=== PATIENT | male | born 1955 | race African-American/Black ===

== ENCOUNTER 2016-09-27 16:37 | Inpatient (IN) | payer OTHER ==
--- NOTE | ~2016-09-27 | CR72 ---
[facility] A Service of [facility] & [facility] RADIOLOGY TEXT RESULTS PATIENT: JERRI GARCIA LOCATION: [facility] : 59 UNIT #: [id number] AGE: [address]: Shadi Garrett MD SEX: M ORDER DR: [id number] [facility] [address] [place], [place] [address] [id number] MR#: [id number] Acc #: [id number] NAME: JERRI GARCIA : 1955 SEX: M STUDY DATE/TIME: 09/27/2016 13:44 UNIT: [facility] ROOM: STUDY DESCRIPTION: CR Chest Single View Portable Attending Physician: Shadi Garrett M.D. Ordering Physician: Shadi Garrett M.D. Primary Care Physician: Carmine Cabrera M.D. MEDICAL IMAGING REPORT This report is preliminary unless electronic signature is present EXAM AP portable chest, 09/27 COMPARISON 08/09/2016 HISTORY Cough, shortness of breath, chest pain for 2 weeks, history of heart failure. FINDINGS An AP portable view was obtained. Cardiac size is enlarged. There is a biventricular pacemaker in place. Lungs show a significant increase in pulmonary vascular congestion and interstitial edema. No obvious pleural effusions are seen. CONCLUSION Cardiomegaly with postop changes of biventricular pacemaker. Increase in the pulmonary vascular markings as well as an increase in interstitial markings consistent development of superimposed heart failure. Dictated by... Chase Mendoza M.D. THIS IS AN ELECTRONICALLY VERIFIED REPORT Chase Mendoza M.D. at 09/27/2016 5:07 PM Misha TD: 09/27/2016 15:40 JOB #: [id number] MEDICAL IMAGING REPORT COPY
--- NOTE | ~2016-09-27 | DS ---
Unit #: [id number] #: [id number] Patient: JERRI GARCIA [id number] [address] [address] [id number] I MR#: [id number] NAME: JERRI GARCIA ROOM: 563 Age: 60 Sex: M Admission Date: 09/27/2016 : 1955 Discharge Date: 10/06/2016 Attending Physician: Eloy Lockett M.D. Primary Care Physician: Carmine Cabrera M.D. DISCHARGE SUMMARY FINAL DIAGNOSES 1. Acute hypoxic respiratory failure. 2. Acute exacerbation of chronic obstructive pulmonary disease. 3. Acute congestive heart failure exacerbation. 4. Ejection fraction of 10%. 5. Right ventricular failure. 6. Automatic implantable cardioverter defibrillator in place. 7. Mildly elevated troponin, 0.18. 8. Nonobstructive coronary artery disease, on cath 09/2014. 9. Acute on chronic kidney disease. 10. Hypertension. 11. Diabetes mellitus type 2. 12. Hyperlipidemia. DISCHARGE MEDICATIONS 1. Entresto , one tablet p.o. b.i.d. 2. Imdur ER 60 mg daily. 3. Spironolactone 25 mg daily. 4. Aspirin 81 mg daily. 5. Colchicine 0.6 mg t.i.d. p.r.n. 6. Zyloprim 300 mg daily. 7. Continue insulin - Lantus 16 units at bedtime and 6 units three times a day Humalog. 8. Discontinue Zestril. 9. Lipitor 40 mg at bedtime. 10. Bumex 2 mg b.i.d. 11. Lopressor 50 mg twice a day. 12. Lanoxin 0.125 mg daily. 13. Xarelto 20 mg daily. 14. Prednisone 30 mg daily for two days and decrease 10 mg every three days until off. 15. Nebulizer treatment with albuterol and Atrovent q.i.d. and p.r.n. CONSULTATION DURING HOSPITALIZATION 1. Dr. Nguyễn - Cardiology services. 2. Dr. Harvey/Dr. Lockett - Pulmonary services. 3. Dr. Erwin Espinal - Ophthalmology services. SIGNIFICANT PROCEDURES AND DIAGNOSTIC STUDIES DONE 1. V/Q scan of the lungs which showed low probability of pulmonary embolism. 2. Lower extremity bilateral venous Doppler which shows negative for any DVT. 3. Chest x-ray PA and lateral October 03, 2016, showed cardiac pacemaker Unit #: [id number] #: [id number] Patient: JERRI GARCIA unchanged. Stable cardiac enlargement. Lungs are well inflated. No evidence of acute infectious or inflammatory disease. No pleural effusion or pneumothorax. No suspicious nodules. 4. Echocardiogram states ejection fraction of 10%, bilateral ventricular failure. LAB WORKUP ON DISCHARGE Sodium 138, potassium 3.7, chloride 100, BUN 29, creatinine 1.1, calcium 8.5, magnesium 2.0, WBC 14.5, hemoglobin 11.6, hematocrit 37.2, platelet count of 324, glucose 147. Blood cultures were done during hospitalization which is no growth. BNP on 10/04/2016 was 1206. TSH 1.80. Lactic acid 1.9 on admission. Troponin 0.15. HOSPITAL COURSE Acute respiratory failure with acute chronic obstructive pulmonary disease exacerbation: The patient was seen by Dr. Harvey and Dr. Lockett. The patient was treated with IV Solu-Medrol and later on changed to prednisone and nebulizer treatment. The patient also received IV antibiotic during hospitalization. Influenzae B positive: The patient was diagnosed with influenzae B on admission. That could be the cause of his chronic obstructive pulmonary disease exacerbation. The patient was treated with Tamiflu and he has completed the course of antibiotics. Acute on chronic systolic congestive heart failure: The patient does have significant cardiomyopathy with ejection fraction of less than 10%. The patient was seen by Dr. Nguyễn and Dr. Mir. He did receive dobutamine drip during hospitalization and IV Bumex. He is somewhat better. His cardiac medications have been adjusted by Dr. Nguyễn. The patient will need to continue to follow up with him as an outpatient. Hypokalemia and hypomagnesemia which has been replaced and is stable on discharge. History of atrial fibrillation/flutter: The patient is on anticoagulation therapy. Seems to be stable at this time. He did have tachycardia on admission which is stable. Again, medications adjusted. Diabetes mellitus: The patient did have hyperglycemia during hospitalization because of most likely secondary to steroids. We need to continue to observe as an outpatient. Hypertension, uncontrolled on admission which is stable at this time: That needs to be continued to observe as an outpatient. Examination on discharge - blood pressure 130/98, respiratory rate 18, pulse is 104, temperature 98.0. HEAD is normocephalic. Eye movements normal. CHEST - clear air entry, decreased at the bases. CVS - S1, S2 positive. ABDOMEN - soft. EXTREMITIES - bilateral pedal edema is present. DISCHARGE INSTRUCTIONS 1. Follow up with primary care provider in one week. 2. Follow with Dr. Nguyễn as scheduled. 3. Discontinue lisinopril. 4. Aldactone has been increased. 5. Isosorbide dose has been decreased to 60 mg. 6. Amiodarone is being discontinued. Unit #: [id number] #: [id number] Patient: JERRI GARCIA Plan of care has been discussed with patient. He does verbalize understanding. Dictated by... Ness Cabrera M.D. AILYN/jr TD: 10/07/2016 06:46 JOB #: [id number] DISCHARGE SUMMARY X Ness Cabrera MD X DISCHARGE SUMMARY
--- NOTE | ~2016-09-27 | HP ---
Unit #: [id number] #: [id number] Patient: JERRI GARCIA [id number] [address] [place], [place] [address] [id number] I MR#: [id number] NAME: JERRI GARCIA. ROOM: 37559 Age: 60 Sex: M Admission Date: 09/27/2016 : 1955 Attending Physician: Flower Randle M.D. Primary Care Physician: Carmine Cabrera M.D. HISTORY AND PHYSICAL CHIEF COMPLAINT Shortness of breath. HISTORY OF PRESENTING ILLNESS A 60-year-old male who is very well known to me with multiple medical problems including systolic congestive heart failure with ejection fraction of 15%, nonischemic cardiomyopathy with a history of AICD, known supraventricular tachycardia, chronic kidney disease, atrial flutter, COPD, type 2 diabetes mellitus, hyperlipidemia, and hypertension, came with the complaint of shortness of breath. According to patient, it just started a few days ago and was gradually getting worse. He could not take a breath and walk even for one block. He also has a history of COPD. He has been coughing and bringing up some yellowish-colored sputum. He is not able to lie down flat. He has orthopnea, and he does have some paroxysmal nocturnal dyspnea also. He also is having bilateral lower extremity swelling. He also complains of chest pain which is the left side of the chest. No tingling or numbness of the arm and no radiation of the pain to the arm. PAST MEDICAL HISTORY 1. Hypertension. 2. Hyperlipidemia. 3. Nonischemic congestive heart failure with ejection fraction of 15%. 4. Chronic kidney disease. 5. Diabetes mellitus. 6. Atrial flutter. 7. Chronic obstructive pulmonary disease. 8. History of AICD in place. FAMILY HISTORY Unremarkable. SOCIAL HISTORY Patient has a history of smoking and heavy drinking, but according to him, he has not been smoking or drinking. No history of drug abuse. ALLERGIES No known drug allergies. HOME MEDICATIONS 1. Lantus 16 units subcutaneous at bedtime. 2. Aspirin 81 mg daily. 3. Albuterol sulfate q.i.d. 4. Digitek 125 mcg daily. Unit #: [id number] #: [id number] Patient: JERRI GARCIA 5. Isosorbide 120 mg daily. 6. Colchicine 0.6 mg 3 times daily. 7. Bumex 2 mg twice daily. 8. Lipitor 40 mg daily. 9. Xarelto 20 mg daily. 10. Hydralazine 25 mg p.o. twice daily. 11. Pacerone 200 mg daily. 12. Allopurinol 300 mg daily. 13. Lisinopril 10 mg daily. 14. Humalog 6 units subcutaneous 3 times daily before meals. REVIEW OF SYSTEMS As per History of Presenting Illness. No history of fever, chills, or rigors. No history of dizziness or syncopal episode. No history of abdominal pain, no nausea or vomiting, and no constipation or diarrhea. The rest is as per History of Presenting Illness. PHYSICAL EXAMINATION GENERAL: Patient is lying in bed and seems to be in respiratory distress. VITAL SIGNS: Blood pressure is 150/101, respiratory rate 16, pulse 129, temperature 97, and oxygen saturation is 90% on BiPAP. HEENT: Head is normocephalic. Eye movements are normal. NECK: Supple. CHEST: Decreased air entry. Crackles are heard. Wheezing is heard bilaterally. CARDIOVASCULAR: S1 and S2 positive. Murmur is heard. ABDOMEN: Soft. Bowel sounds are positive. EXTREMITIES: Bilateral lower extremity edema is present. CENTRAL NERVOUS SYSTEM: Awake, alert, and oriented x3. No focal neurological deficit. DIAGNOSTIC STUDIES LABORATORY: ABG on room air with pH of 7.5, PCO2 of 28, PO2 of 61.4, and oxygen saturation is 88.4%. Troponin is 0.09. CBC shows WBC 5.9, hemoglobin 11.5, hematocrit 36.2, and platelet count of 270,000. Digoxin less than 0.2. BNP 763. BMP shows sodium of 140, potassium 3.1, chloride 100, BUN 49, creatinine 1.8, AST 132, ALT 111, and alkaline phosphatase 107. Lactic acid 2.5. Influenza B is positive. IMAGING: Chest x-ray shows fluid overload and increase in pulmonary vascular marking. ASSESSMENT Patient is being admitted to the ICU because of being on BiPAP with diagnoses of: 1. Acute on chronic hypoxic respiratory failure. 2. Acute on chronic systolic congestive heart failure with ejection fraction of 15%. 3. Influenza B positive. 4. Hypokalemia. 5. Chronic obstructive pulmonary disease exacerbation. 6. Chest pain with troponin minimal elevation, possible progression of coronary artery disease. 7. History of atrial fibrillation and flutter, on anticoagulation therapy, with tachycardia. 8. Diabetes mellitus x2. 9. Hypertension, uncontrolled. Unit #: [id number] #: [id number] Patient: JERRI GARCIA PLAN Admit to telemetry unit. Dr. Nguyễn and Dr. Harvey have been consulted. IV Solu-Medrol 40 mg q.12 is being started. IV Lopressor is being started. IV Bumex 2 mg b.i.d. An 1800 mL fluid restriction. Daily weight and strict I/Os. IV Lanoxin 0.25 mg stat and q.6 hours for 4 doses, followed by 0.125 mg daily as patient's Lanoxin level is low. Xarelto 20 mg p.o. stat and daily. Home medications have been reviewed. IV vancomycin and Levaquin are being continued at this time. Please refer to progress note for further orders. Dictated by Debbie Kingsley TD: 09/27/2016 18:26 JOB #: [id number] HISTORY AND PHYSICAL X Ness Cabrera MD X HISTORY AND PHYSICAL
--- NOTE | ~2016-09-27 | NM69 ---
[facility] A Service of [facility] & [facility] RADIOLOGY TEXT RESULTS PATIENT: JERRI GARCIA LOCATION: [address] : [birth year] UNIT #: [id number] AGE: [address]: Eloy Lockett MD SEX: M ORDER DR: [id number] [facility] [address] [place], [place] [address] [id number] I MR#: [id number] Acc #: [id number] NAME: JERRI GARCIA. : 1955 SEX: M STUDY DATE/TIME: 09/28/2016 7:33 UNIT: [facility] ROOM: [facility] STUDY DESCRIPTION: NM Pulm Vent and Perf Attending Physician: Eloy Lockett M.D. Ordering Physician: Flower Randle M.D. Primary Care Physician: Carmine Cabrera M.D. MEDICAL IMAGING REPORT This report is preliminary unless electronic signature is present EXAM V/Q scan, 09/28. INDICATION Shortness of air and chest pain for 3 weeks. Elevated D-dimer. Fatigue. FINDINGS Ventilation images were obtained after the administration of 36 mCi of technetium 99m-DTPA aerosol. Corresponding perfusion images were obtained after the IV administration of 5.3 mCi of technetium 99m-MAA. Comparison made with chest x-ray performed 09/27/2016 at 1344 hours. Ventilation and perfusion tracer deposition in the lungs is somewhat heterogeneous, but no V/Q mismatches are seen. There are no segmental perfusion defects. The study is low probability for pulmonary embolism. IMPRESSION Low probability for pulmonary embolism. Dictated by... Harjinder Buckner Jr., M.D. THIS IS AN ELECTRONICALLY VERIFIED REPORT Harjinder Buckner Jr., M.D. at 09/28/2016 3:50 PM MARÍA ELENA/ban TD: 09/28/2016 09:26 JOB #: [id number] MEDICAL IMAGING REPORT COPY
--- NOTE | ~2016-09-27 | EKG ---
PATIENT: JERRI GARCIA UNIT #: [id number] Ventricular Rate: 131 BPM Atrial Rate: 131 BPM P-R Interval: 136 ms QRS Duration: 130 ms Q-T Interval: 326 ms QTC Calculation(Bezet): 481 ms P Valencia: 70 degrees Calculated R Valencia: 85 degrees Calculated T Valencia: -92 degrees Diagnosis Line: Atrial flutter with occasional Premature Diagnosis Line: ventricular complexes Diagnosis Line: Possible Left atrial enlargement Diagnosis Line: Non-specific intra-ventricular conduction block Diagnosis Line: T wave abnormality, consider inferolateral Diagnosis Line: ischemia Diagnosis Line: Abnormal ECG Diagnosis Line: When compared with ECG of 04-AUG-2016 05:51, Diagnosis Line: Atrial flutter has replaced Electronic ventricular Diagnosis Line: pacemaker Diagnosis Line: Vent. rate has increased BY 63 BPM Diagnosis Line: Confirmed by MANJIT AGUILAR MD ([id number]) on Diagnosis Line: 09/28/2016 11:50:11 AM INTERPRETING : WILMER
--- NOTE | ~2016-09-27 | EKG ---
PATIENT: JERRI GARCIA UNIT #: [id number] Ventricular Rate: 114 BPM Atrial Rate: 52 BPM QRS Duration: 132 ms Q-T Interval: 384 ms QTC Calculation(Bezet): 529 ms Calculated R Claypool: 74 degrees Calculated T Claypool: -90 degrees Diagnosis Line: Electronic ventricular pacemaker Diagnosis Line: underlying atrial flutter with 1:1 conduction Diagnosis Line: When compared with ECG of 28-SEP-2016 07:12, Diagnosis Line: Electronic ventricular pacemaker is new Diagnosis Line: Confirmed by RENETTA HOLLIDAY MD ([id number]) on 09/29/2016 Diagnosis Line: 7:40:12 PM INTERPRETING MD: MG VALDEZ
--- NOTE | ~2016-09-27 | US84 ---
[id number] [facility]. [facility] [address] [place], [place] [address] [id number] I MR#: [id number] Acc #: [id number] NAME: JERRI GARCIA : 1955 SEX: M STUDY DATE/TIME: 09/28/2016 10:39 UNIT: [facility] ROOM: [facility] STUDY DESCRIPTION: US LE Veins Complete Jc Stdy Attending Physician: Eloy Lockett M.D. Ordering Physician: Flower Randle M.D. Primary Care Physician: Carmine Cabrera M.D. MEDICAL IMAGING REPORT This report is preliminary unless electronic signature is present EXAM Bilateral leg vein Doppler, 09/28 INDICATIONS Shortness of air with chest pain for the last 2 days. TECHNIQUE Venous ultrasound examination of both lower extremities was performed using grayscale, spectral Doppler and color flow Doppler imaging. FINDINGS The examination is negative. There is no evidence of deep venous thrombus from the groin to the lower calf bilaterally. Visualized greater saphenous veins are also patent. IMPRESSION Negative examination. No evidence of bilateral lower extremity deep venous thrombosis. Dictated by... Harjinder Buckner Jr., M.D. THIS IS AN ELECTRONICALLY VERIFIED REPORT Harjinder Buckner Jr., M.D. at 09/28/2016 3:51 PM MARÍA ELENA/braulio TD: 09/28/2016 12:07 JOB #: [id number] MEDICAL IMAGING REPORT COPY
--- NOTE | ~2016-09-27 | CO ---
Unit #: [id number] #: [id number] Patient: JERRI GARCIA [id number] [address] [address] [id number] I MR#: [id number] NAME: JERRI GARCIA. ROOM: 54854 Age: 60 Sex: M Admission Date: 09/27/2016 : 1955 Attending Physician: Flower Randle M.D. Primary Care Physician: Carmine Cabrera M.D. Consultation Date: 09/27/2016 CONSULTATION REPORT REASON FOR CONSULT ICU management. HISTORY OF PRESENT ILLNESS This is a 60-year-old, pleasant -[place] male with past medical history significant for hypertension, hyperlipidemia, nonischemic cardiomyopathy related to alcohol abuse, who presented to the emergency room with a few days' history of progressive dyspnea, chest discomfort, fatigue and cough productive sometimes of colorful sputum. Patient stated that he takes his medicine as supposed to but, per the nursing staff, his medicine bottles were full with no use. He denies any fever, chills or night sweats. No sore throat. His chest x-ray is consistent with pulmonary edema and pneumonia and his flu test tested positive for flu B. Patient currently is on BiPAP in respiratory distress. His blood pressure is stable. REVIEW OF SYSTEMS A 12-point review of systems was obtained and was negative except for what was mentioned in the HPI. PAST MEDICAL HISTORY 1. Nonischemic cardiomyopathy. 2. Afib with RVR in the past. 3. COPD. 4. Hypertension. 5. Diabetes type 2. 6. Degenerative joint disease. 7. Chronic pain. 8. Hyperlipidemia. 9. Untreated obstructive sleep apnea SOCIAL HISTORY The patient is a current smoker. He is smoking less than a pack per month. As he stated, he tried to quit in September 2014 but he went back smoking. He drinks an alcoholic beverage occasionally at least per his statement. No history of drug abuse. FAMILY HISTORY Unit #: [id number] #: [id number] Patient: JERRI GARCIA End-stage renal disease and heart failure. PAST SURGICAL HISTORY Left heart catheterization. ALLERGIES No known drug allergy. HOME MEDICATION 1. Bumex. 2. Potassium. 3. Symbicort. 4. Lisinopril. 5. Norvasc. 6. Humalog. 7. Zocor. PHYSICAL EXAMINATION GENERAL: The patient is in respiratory distress. HEENT: Normocephalic and atraumatic. PERRLA. EOMI. NECK: Supple, with positive JVD. HEART: S1, S2, regular rhythm. CHEST: Bilateral wheezing and diffuse rhonchi. ABDOMEN: Soft, nontender. Bowel sounds positive. No hepatosplenomegaly. EXTREMITIES: +1 edema in the lower extremities, more on the right than left. SKIN: No rashes. DIAGNOSTIC STUDIES LABORATORY: Creatinine 1.8, sodium 140, white blood count 5.9. IMAGING: Chest x-ray is consistent with pneumonia and pulmonary edema. ASSESSMENT 1. Acute hypoxic respiratory failure. 2. Influenza B. 3. Hospital-acquired pneumonia. 4. Congestive heart failure exacerbation. 5. Diabetes. 6. Hypertension. 7. Atrial fibrillation with rapid ventricular rate. 8. Chronic obstructive pulmonary disease exacerbation. 9. Obstructive sleep apnea. PLAN 1. Patient is critical on the BiPAP. Will assess him periodically for any possible need of mechanical ventilation. 2. Will start IV steroid cautiously in the light of his diabetes and uncontrolled blood sugar. 3. Vancomycin/cefepime and Tamiflu. 4. IV Bumex per Cardiology. 5. Aggressive pulmonary toilet, bronchodilator and mucolytics. 6. DVT prophylaxis. Critical care time spent on this patient was 36 minutes. Unit #: [id number] #: [id number] Patient: JERRI GARCIA Dictated by... Debbie Young TD: 09/27/2016 17:50 JOB #: [id number] CONSULTATION REPORT X KIKA DAO MD X CONSULTATION REPORT
--- NOTE | ~2016-09-27 | CR63 ---
[facility] A Service of [facility] & [facility] RADIOLOGY TEXT RESULTS PATIENT: JERRI GARCIA LOCATION: [facility] 563-01 : [birth year] UNIT #: [id number] AGE: [address]: Eloy Lockett MD SEX: M ORDER DR: [id number] [facility] [address]. [place], [place] [address] [id number] I MR#: [id number] Acc #: [id number] NAME: JERRI GARCIA. : 1955 SEX: M STUDY DATE/TIME: 10/03/2016 17:18 UNIT: [facility] ROOM: [facility] STUDY DESCRIPTION: CR Chest 2 View Attending Physician: Eloy Lockett M.D. Ordering Physician: Paul Nguyễn M.D. Primary Care Physician: Carmine Cabrera M.D. MEDICAL IMAGING REPORT This report is preliminary unless electronic signature is present EXAM Chest 2 views HISTORY Diminished lung sounds. Cough, short of air, congestion 3 weeks ago. No known injury. Asthma, bronchitis. Smoker 25 years. FINDINGS AP radiographs of the chest are presented. Comparison 09/29/2016. Stable cardiac enlargement. Cardiac pacemaker unchanged. The lungs are well inflated. There is no evidence of acute infectious or inflammatory disease at this time. No pleural effusion or pneumothorax. No suspicious nodule. Visualized upper abdomen unremarkable. Dictated by... Chase Davis M.D. THIS IS AN ELECTRONICALLY VERIFIED REPORT Chase Davis M.D. at 10/04/2016 4:28 PM JOSE/sydnie TD: 10/04/2016 10:00 JOB #: [id number] MEDICAL IMAGING REPORT COPY
--- NOTE | ~2016-09-27 | CR72 ---
[facility] A Service of [facility] & [facility] RADIOLOGY TEXT RESULTS PATIENT: JERRI GARCIA LOCATION: [facility] : [birth year] UNIT #: [id number] AGE: [address]: Eloy Lockett MD SEX: M ORDER DR: [id number] [facility] [address] [place], [place] [address] [id number] I MR#: [id number] Acc #: [id number] NAME: JERRI GARCIA. : 1955 SEX: M STUDY DATE/TIME: 09/29/2016 2:30 UNIT: [facility] ROOM: [facility] STUDY DESCRIPTION: CR Chest Single View Portable Attending Physician: Eloy Lockett M.D. Ordering Physician: Kate Harvey M.D. Primary Care Physician: Carmine Cabrera M.D. MEDICAL IMAGING REPORT This report is preliminary unless electronic signature is present EXAM Portable AP view of the chest COMPARISON September 27, 2016 and August 09, 2016. INDICATION 60-year-old male with dyspnea, cough and chills for 2 days. History of hypertension and CHF. FINDINGS/IMPRESSION No evidence of pneumothorax or pleural effusion. Multilead left chest pacemaker/defibrillator device appears stable. No evidence of complication. There is marked cardiomegaly, unchanged. Interstitial opacities throughout the lungs appear improved with some persistent interstitial opacity seen in the right upper lobe centrally. Findings likely reflect improving pulmonary edema. Dictated by... Lenny Shen M.D. THIS IS AN ELECTRONICALLY VERIFIED REPORT Lenny Shen M.D. at 10/04/2016 8:44 PM OMAR/sydnie TD: 09/29/2016 09:39 JOB #: [id number] MEDICAL IMAGING REPORT COPY
--- NOTE | ~2016-09-27 | CO ---
Unit #: [id number] #: [id number] Patient: JRERI GARCIA [id number] [address] [place], [place] [address] [id number] MR#: [id number] NAME: JERRI GARCIA. ROOM: [facility] Age: 60 Sex: M Admission Date: 09/27/2016 : 1955 Attending Physician: Eloy Lockett M.D. Primary Care Physician: Carmine Cabrera M.D. CONSULTATION REPORT REASON FOR CONSULTATION Heart failure. HISTORY OF PRESENT ILLNESS This is a 60-year-old male, who was discharged from this facility on 08/09/2006, where he was admitted with hypoxic respiratory failure. He also had an acute on chronic systolic heart failure. His known nonischemic cardiomyopathy with an ejection fraction has been as low as 15%. He has AICD. During his last admission, he was noted to have atrial flutter with rapid ventricular response that was treated with amiodarone, where he converted to normal sinus rhythm. He was started on anticoagulation with Xarelto. His last cardiac catheterization was in 2014, where he was found to have nonobstructive coronary artery disease. The patient presents to the emergency room with a complaint of shortness of breath that occurs at rest and is worse on exertion. He has a nonproductive cough, abdominal discomfort, chills, and chest pain. He states his chest pain mostly occurs with deep inspiration and cough. There is some radiation to his left shoulder. He reports lower extremity edema for the past 3 weeks that has progressively worsened. He has paroxysmal nocturnal dyspnea and orthopnea, where he unable to lay down requiring him to sleep upright in a chair. He states he has been compliant with his fluid restriction and medications. According to the nurse, the patient has full bottle of the medications that has not been filled for several months. He came to the emergency room for evaluation, where he was found to be influenza B positive. His BNP elevated at 763 with chest x-ray noted for congestive heart failure. His EKG showed atrial flutter with rapid ventricular response with a rate of 131 beats per minute. He was hypokalemic with potassium level of 3.1. He is currently on BiPAP. PAST MEDICAL HISTORY 1. Cardiac catheterization on 09/2014 showed an ejection fraction of 20%. Left circumflex artery had 30% stenosis. Right coronary artery midvessel stenosis of 20% with right PDA 40%. LAD normal. 2. Nonischemic cardiomyopathy, status post biventricular AICD. 3. Chronic systolic heart failure. 4. Paroxysmal atrial fibrillation/flutter, on anticoagulation with Xarelto. 5. Hypertension. 6. Hyperlipidemia. 7. Diabetes mellitus, type 2. 8. Chronic kidney disease. Unit #: [id number] #: [id number] Patient: JERRI GARCIA 9. COPD. 10. Active smoker. 11. Noncompliance. PAST SURGICAL HISTORY 1. AICD implantation. 2. Finger surgery. SOCIAL HISTORY The patient is disabled. He lives with his niece. He continues to smoke, he says 5 cigarettes a day. The niece says he smokes much more. Drinks alcohol on occasion. No illicit drug use. FAMILY HISTORY Positive for coronary artery disease. ALLERGIES No known drug allergies. HOME MEDICATIONS Lantus 16 units q.h.s., aspirin 81 mg daily, albuterol per mini nebs q.i.d. p.r.n., digoxin 125 mcg daily, isosorbide mononitrate 120 mg daily, colchicine 0.6 mg t.i.d., Bumex 2 mg b.i.d., Lipitor 40 mg daily, Xarelto 20 mg daily, hydralazine 25 mg b.i.d., amiodarone 200 mg daily, allopurinol 300 mg daily, lisinopril 10 mg daily, Humalog 6 units subcu t.i.d. a.c. meals. REVIEW OF SYSTEMS CONSTITUTIONAL: Positive for chills, but no fever. Reports weakness and fatigue. HEENT: No headache, hearing or vision changes, difficulty with swallowing. Positive for dizziness. CARDIOVASCULAR: Has chest pain described in the HPI. Positive for palpitations. Reports paroxysmal nocturnal dyspnea and orthopnea. No syncope or near syncope. RESPIRATORY: Has a nonproductive cough. Reports dyspnea at rest, it is worse on exertion. No hemoptysis. GASTROINTESTINAL: Reports abdominal discomfort, but no nausea or vomiting. No diarrhea. No hematochezia, hematemesis, or melena. EXTREMITIES: Positive for lower extremity edema. PHYSICAL EXAMINATION VITAL SIGNS: Blood pressure 138/90, heart rate 130, temperature 97.0. BMI 28. GENERAL: This is a 60-year-old well-developed male. He is currently on BiPAP. NEUROLOGIC: He is awake, alert, and oriented without focal weaknesses. NECK: Trachea is midline. No thyromegaly or lymphadenopathy. With no jugular venous distention. HEART: S1 and S2. Heart sounds are normal. No murmurs. No rubs or clicks. Regular rate and rhythm. LUNGS: With diminished breath sounds and coarse rhonchi in both lungs. ABDOMEN: Soft and obese with bowel sounds present. Tender with palpation. EXTREMITIES: With 1+ leg edema. SKIN: Warm and dry. DIAGNOSTIC STUDIES Unit #: [id number] #: [id number] Patient: JERRI GARCIA LABORATORY RESULTS: Hemoglobin 11.5, hematocrit 36.2, platelet count 270, white count 5.9. Sodium 140, potassium 3.1, BUN 49, creatinine 1.8, glucose 116. AST 132, ALT 111. BNP 763. Troponin 0.06. Positive for influenza B. IMAGING STUDIES: Chest x-ray noted for cardiomegaly and heart failure. CARDIOVASCULAR STUDIES: EKG; atrial flutter with rapid ventricular response with a rate of 131 beats per minute. There is Q waves noted in I and aVL consistent with old high lateral myocardial infarction. There is ST depression in V5, V6. IMPRESSION 1. Acute on chronic hypoxic respiratory failure. 2. Chronic obstructive pulmonary disease exacerbation. 3. Acute on chronic systolic heart failure. 4. Nonischemic cardiomyopathy, status post biventricular automatic implantable cardioverter defibrillator. 5. Atrial flutter with rapid ventricular response. 6. Hypertension. 7. Hyperlipidemia. 8. Chronic kidney disease. 9. Nicotine abuse. 10. Nonobstructive coronary artery disease per cardiac catheterization in 09/2014. 11. Influenza B positive. 12. Hypokalemia. 13. Atypical chest pain. PLAN 1. Cardiology was consulted for congestive heart failure. We will continue to diurese the patient with IV diuretics. 2. Place on fluid restriction. 3. Control blood pressure with digitalis and beta-blockers. 4. We will withhold DIRK inhibitor because of chronic kidney disease and low cardiac output state. 5. The patient may need direct current cardioversion. 6. Trend cardiac enzymes and troponin to rule out myocardial infarction. 7. Supplement potassium. 8. Continue the patient on anticoagulation with Xarelto. Dictated by... Angelito GuyPCrRCrNCr for Debbie Alexander/donna TD: 09/27/2016 21:52 JOB #: [id number] Unit #: [id number] #: [id number] Patient: JERRI GARCIA CONSULTATION REPORT X Mohsen Chavis APRN CONSULTATION REPORT
--- NOTE | ~2016-09-27 | EKG ---
PATIENT: JERRI GARCIA UNIT #: [id number] Ventricular Rate: 124 BPM Atrial Rate: 124 BPM P-R Interval: 128 ms QRS Duration: 138 ms Q-T Interval: 320 ms QTC Calculation(Bezet): 459 ms P [place]: 69 degrees Calculated R [place]: 69 degrees Calculated T [place]: -107 degrees Diagnosis Line: Atrial flutter with PVC's Diagnosis Line: Non-specific intra-ventricular conduction delay Diagnosis Line: Nonspecific ST and T wave abnormality Diagnosis Line: When compared with ECG of 27-SEP-2016 12:50, Diagnosis Line: (unconfirmed) Diagnosis Line: No significant change was found Diagnosis Line: Diagnosis Line: Confirmed by MANJIT AGUILAR MD ([id number]) on Diagnosis Line: 09/28/2016 12:07:46 PM INTERPRETING MD: WILMER
[2016-09-27 13:20] LABS: ARTERIAL BLD GAS O2 SATURATION 88.4 % (90.0-100.0); ARTERIAL BLOOD GAS CARBOXY HB 1.9 %sat (0.0-9.0); ARTERIAL BLOOD GAS HCO3 22.8 mmol/L; ARTERIAL BLOOD GAS MET HB 0.5 %sat (0.0-2.0); ARTERIAL BLOOD GAS PCO2 28.9 mmHg (35.0-45.0); ARTERIAL BLOOD GAS pH 7.506 (7.350-7.450)
[2016-09-27 13:21] LABS: ARTERIAL BLOOD GAS ALLEN TEST POS; ARTERIAL BLOOD GAS ART SITE RIGHT RADIAL; ARTERIAL BLOOD GAS PO2 61.4 mmHg (80.0-100); ARTERIAL DRAW? YES
[2016-09-27 13:43] LABS: POC - CKMB 4.7 ng/mL (0.0-7.9); POC - TROPONIN 0.09 ng/mL (<=0.05)
[2016-09-27 14:00] LABS: BASOPHIL% 0.8 % (0-2.5); EOSINOPHIL% 0.7 % (0.0-7.0); HEMATOCRIT 36.2 % (38.0-50.0); HEMOGLOBIN 11.5 gm/dL (13.0-16.0); LYMPHOCYTE# 1.7 X10e3 (1.0-3.5); LYMPHOCYTE% 29.6 % (17.0-45.0); MEAN CELL VOLUME 91.2 FL (83-96); MEAN CORPUSCULAR HEMOGLOBIN 28.9 PG (28-34); MEAN CORPUSCULAR HGB CONC 31.7 g/dL (30-36); MEAN PLATELET VOLUME 9.5 FL (6.5-11.5); MONOCYTE# 0.3 X10e3 (0-1.0); MONOCYTE% 5.9 % (3.0-12.0); NEUTROPHIL# 3.7 X10e3 (1.5-7.1); PLATELET COUNT 270 X10e3 (140-420); RED BLOOD COUNT 3.97 X10e (3.90-5.60); RED CELL DISTRIBUTION WIDTH 16.9 % (11.0-15.5); WHITE BLOOD COUNT 5.9 X10e3 (4.0-10.5)
[2016-09-27 14:01] LABS: DIFF IND NO
[2016-09-27 14:11] LABS: INR 1.3; PARTIAL THROMBOPLASTIN TIME 27.2 SECONDS (23.5-31.3); PROTHROMBIN TIME (PATIENT) 14.2 SECONDS (9.6-11.5)
[2016-09-27 14:28] LABS: ALBUMIN SERUM 3.5 g/dL (3.5-5.0); BILIRUBIN, DIRECT 0.4 mg/dL (0.0-0.2); BILIRUBIN,INDIRECT 0.8 mg/dL (0.0-0.9); BILIRUBIN,TOTAL 1.2 mg/dL (0.2-2.0); BUN/CREATININE RATIO 27.22; CALCIUM SERUM 8.4 mg/dL (8.4-10.2); CREATININE SERUM 1.8 mg/dL (0.6-1.4); GLOM FILT RATE Estimated 50.1 mL/min (>60); POTASSIUM 3.1 mmol/L (3.5-5.1); PROTEIN TOTAL SERUM 7.2 g/dL (6.0-8.3)
[2016-09-27 15:45] LABS: INFLUENZA A NEG (NEG); INFLUENZA B POS (NEG)
[2016-09-27 15:49] LABS: ARTERIAL BLD GAS O2 SATURATION 88.3 % (90.0-100.0); ARTERIAL BLOOD GAS ALLEN TEST POS; ARTERIAL BLOOD GAS ART SITE RIGHT RADIAL; ARTERIAL BLOOD GAS CARBOXY HB 1.7 %sat (0.0-9.0); ARTERIAL BLOOD GAS HCO3 23.5 mmol/L; ARTERIAL BLOOD GAS MET HB 0.3 %sat (0.0-2.0); ARTERIAL BLOOD GAS PCO2 32.9 mmHg (35.0-45.0); ARTERIAL BLOOD GAS PO2 63.3 mmHg (80.0-100); ARTERIAL BLOOD GAS pH 7.462 (7.350-7.450); ARTERIAL DRAW? YES
[2016-09-27 16:08] LABS: POC - CKMB 4.7 ng/mL (0.0-7.9); POC - TROPONIN 0.06 ng/mL (<=0.05)
[~2016-09-27 16:37] MED LIST: ALB/IPRATROPIUM/1 E1 INH; ALBUTEROL MININEB IH; ALBUTEROL MININEB NEB; ALDACTONE PO; ALDACTONE25 MG PO; ALKA-SELTZER H1 EACH PO; ALLERGY RELIEF25 MG PO; ALLOPURINOL300 MG PO; ASPIRIN ENTERI325 M1 PO; ASPIRIN81 M2 PO; BENADRYL25 M1 PO; BENADRYL25 MG PO; BUMEX1 MG PO; BUMEX2 MG PO; COLACE PO; COLCHICINE0.6 M1 PO; COREG12.5 MG PO; COZAAR100 MG PO; DIGITEK125 MC1 PO; DIGOX0.25 MG PO; DOCUSATE SODIU100 MG PO; GABAPENTIN300 M2 PO; HUMALOG KW200 UNIT/1 SUBQ; HUMALOG100 U/M2; HUMALOG100 U/M2 SUBQ; HYDRALAZINE HC100 MG PO; HYDRALAZINE HCL25 MG PO; HYDROCODONE-APA1 T56 PO; IMDUR PO; ISOSORBIDE MON120 M1 PO; KCL PO; LANOXIN125 MCG PO; LANTUS100 U/ML SUBQ; LEVEMIR SUBQ; LIPITOR40 MG PO; LISINOPRIL10 MG PO; LISINOPRIL20 MG PO; LOSARTAN POTASS50 MG PO; LOW DOSE ASPIRI81 M1 PO; METOPROLOL SUC100 MG PO; MIRALAX17 GM PO; NEURONTIN300 MG PO; NITROSTAT0.4 MG SL; NORVASC10 MG PO; PACERONE PO; PREDNISONE PO; PREDNISONE10 MG; PREDNISONE10 MG PO; PRINIVIL10 MG PO; PRINIVIL20 M1 PO; SYMBICORT INH; TYLENOL #3 PO; TYLENOL325 M1 PO; VENTOLIN5 MG/ML IH; VITAMIN D50000 UNIT PO; XARELTO20 MG PO; ZESTRIL10 M2 PO; ZITHROMAX1 G/PKT PO; ZOCOR20 MG PO
[2016-09-27 22:55] LABS: URINE SOURCE CLEAN CATCH
[2016-09-27 23:02] LABS: URINE APPEARANCE CLEAR; URINE BILIRUBIN NEG (NEG); URINE BLOOD NEG (NEG); URINE COLOR YELLOW; URINE GLUCOSE NEG (NEG); URINE KETONE NEG (NEG); URINE LEUKOCYTE ESTERASE NEG (NEG); URINE NITRATE NEG (NEG); URINE PH 5.5 (5-8); URINE PROTEIN 2+ (NEG); URINE SPECIFIC GRAVITY 1.015 (1.003-1.035); URINE UROBILINOGEN 0.2 MG/DL (NEG)
[2016-09-27 23:07] LABS: U HYALINE CASTS AUWI 0-2 /[LPF]; URBCS1 AUWI 0-2 /[HPF] (0-2); URINE BACTERIA AUWI NEG (NEGATIVE); URINE SQUAMOUS EPITHELIAL CELL NONE SEEN /[HPF]; UWBCS1 AUWI 0-2 (0-5)
[2016-09-27 23:15] LABS: CULTURE INDICATED? NO
[2016-09-27 23:20] LABS: %MB 0.7 % (0.0-4.0); MB 4.9 ng/ml
[2016-09-28 04:59] LABS: BLOOD UREA NITROGEN 52 mg/dL (9-23); BUN/CREATININE RATIO 34.66; CALCIUM SERUM 7.9 mg/dL (8.4-10.2); CARBON DIOXIDE 22 mmol/L (22-31); CHLORIDE 101 mmol/L (100-111); CREATININE SERUM 1.5 mg/dL (0.6-1.4); GLOM FILT RATE Estimated ABOVE60 mL/min (>60); GLUCOSE FASTING 311 mg/dL (70-110); MAGNESIUM 1.7 mg/dL (1.6-3.0); POTASSIUM 3.7 mmol/L (3.5-5.1); SODIUM 138 mmol/L (135-145)
[2016-09-28 07:07] LABS: %MB 0.8 % (0.0-4.0); MB 4.6 ng/ml
[2016-09-28 07:48] LABS: PROCALCITONIN 0.43 NG/ML
[2016-09-28 10:30] LABS: LEGIONELLA AG URINE NEG (NEG)
[2016-09-29 05:50] LABS: BASOPHIL% 0.3 % (0-2.5); HEMATOCRIT 33.6 % (38.0-50.0); HEMOGLOBIN 10.6 gm/dL (13.0-16.0); LYMPHOCYTE# 0.8 X10e3 (1.0-3.5); MEAN CELL VOLUME 90.6 FL (83-96); MEAN CORPUSCULAR HEMOGLOBIN 28.7 PG (28-34); MEAN CORPUSCULAR HGB CONC 31.6 g/dL (30-36); MEAN PLATELET VOLUME 8.9 FL (6.5-11.5); MONOCYTE# 0.6 X10e3 (0-1.0); MONOCYTE% 4.7 % (3.0-12.0); NEUTROPHIL# 10.3 X10e3 (1.5-7.1); PLATELET COUNT 242 X10e3 (140-420); RED BLOOD COUNT 3.71 X10e (3.90-5.60); RED CELL DISTRIBUTION WIDTH 16.4 % (11.0-15.5)
[2016-09-29 05:58] LABS: WHITE BLOOD COUNT 11.7 X10e3 (4.0-10.5)
[2016-09-29 05:59] LABS: DIFF IND NO
[2016-09-29 07:06] LABS: BLOOD UREA NITROGEN 45 mg/dL (9-23); BUN/CREATININE RATIO 34.61; CALCIUM SERUM 8.1 mg/dL (8.4-10.2); CARBON DIOXIDE 27 mmol/L (22-31); CHLORIDE 100 mmol/L (100-111); CREATININE SERUM 1.3 mg/dL (0.6-1.4); GLOM FILT RATE Estimated ABOVE60 mL/min (>60); GLUCOSE FASTING 115 mg/dL (70-110); POTASSIUM 3.4 mmol/L (3.5-5.1); SODIUM 138 mmol/L (135-145)
[2016-09-30 09:43] LABS: BLOOD UREA NITROGEN 47 mg/dL (9-23); BUN/CREATININE RATIO 36.15; CALCIUM SERUM 8.6 mg/dL (8.4-10.2); CARBON DIOXIDE 27 mmol/L (22-31); CHLORIDE 96 mmol/L (100-111); CREATININE SERUM 1.3 mg/dL (0.6-1.4); GLOM FILT RATE Estimated ABOVE60 mL/min (>60); GLUCOSE FASTING 258 mg/dL (70-110); POTASSIUM 3.5 mmol/L (3.5-5.1); SODIUM 134 mmol/L (135-145)
[2016-10-01 05:34] LABS: HEMATOCRIT 37.3 % (38.0-50.0); HEMOGLOBIN 11.6 gm/dL (13.0-16.0); MEAN CELL VOLUME 89.4 FL (83-96); MEAN CORPUSCULAR HEMOGLOBIN 27.9 PG (28-34); MEAN CORPUSCULAR HGB CONC 31.3 g/dL (30-36); MEAN PLATELET VOLUME 9.4 FL (6.5-11.5); RED BLOOD COUNT 4.17 X10e (3.90-5.60); RED CELL DISTRIBUTION WIDTH 16.5 % (11.0-15.5); WHITE BLOOD COUNT 13.7 X10e3 (4.0-10.5)
[2016-10-01 06:15] LABS: BLOOD UREA NITROGEN 43 mg/dL (9-23); BUN/CREATININE RATIO 33.07; CALCIUM SERUM 8.8 mg/dL (8.4-10.2); CARBON DIOXIDE 25 mmol/L (22-31); CHLORIDE 99 mmol/L (100-111); CREATININE SERUM 1.3 mg/dL (0.6-1.4); GLOM FILT RATE Estimated ABOVE60 mL/min (>60); GLUCOSE FASTING 161 mg/dL (70-110); POTASSIUM 3.7 mmol/L (3.5-5.1); SODIUM 137 mmol/L (135-145)
[2016-10-02 07:08] LABS: HEMATOCRIT 36.3 % (38.0-50.0); HEMOGLOBIN 11.4 gm/dL (13.0-16.0); MEAN CELL VOLUME 89.9 FL (83-96); MEAN CORPUSCULAR HEMOGLOBIN 28.3 PG (28-34); MEAN CORPUSCULAR HGB CONC 31.5 g/dL (30-36); MEAN PLATELET VOLUME 9.2 FL (6.5-11.5); RED BLOOD COUNT 4.03 X10e (3.90-5.60); RED CELL DISTRIBUTION WIDTH 16.6 % (11.0-15.5); WHITE BLOOD COUNT 11.9 X10e3 (4.0-10.5)
[2016-10-02 07:51] LABS: BLOOD UREA NITROGEN 48 mg/dL (9-23); BUN/CREATININE RATIO 34.28; CALCIUM SERUM 8.6 mg/dL (8.4-10.2); CARBON DIOXIDE 25 mmol/L (22-31); CHLORIDE 102 mmol/L (100-111); CREATININE SERUM 1.4 mg/dL (0.6-1.4); GLOM FILT RATE Estimated ABOVE60 mL/min (>60); GLUCOSE FASTING 233 mg/dL (70-110); POTASSIUM 3.9 mmol/L (3.5-5.1); SODIUM 138 mmol/L (135-145)
[2016-10-04 07:49] LABS: HEMATOCRIT 38.1 % (38.0-50.0); HEMOGLOBIN 11.9 gm/dL (13.0-16.0); MEAN CELL VOLUME 89.2 FL (83-96); MEAN CORPUSCULAR HEMOGLOBIN 27.8 PG (28-34); MEAN CORPUSCULAR HGB CONC 31.1 g/dL (30-36); MEAN PLATELET VOLUME 9.1 FL (6.5-11.5); RED BLOOD COUNT 4.27 X10e (3.90-5.60); RED CELL DISTRIBUTION WIDTH 16.8 % (11.0-15.5); WHITE BLOOD COUNT 12.2 X10e3 (4.0-10.5)
[2016-10-04 07:58] LABS: ALBUMIN SERUM 3.1 g/dL (3.5-5.0); ALKALINE PHOSPHATASE 94 U/L (32-92); ALT (SGPT) 51 U/L (10-40); AST (SGOT) 29 U/L (10-42); BILIRUBIN,TOTAL 0.8 mg/dL (0.2-2.0); BLOOD UREA NITROGEN 37 mg/dL (9-23); BUN/CREATININE RATIO 28.46; CALCIUM SERUM 8.4 mg/dL (8.4-10.2); CARBON DIOXIDE 27 mmol/L (22-31); CHLORIDE 103 mmol/L (100-111); CREATININE SERUM 1.3 mg/dL (0.6-1.4); GLOM FILT RATE Estimated ABOVE60 mL/min (>60); GLUCOSE FASTING 273 mg/dL (70-110); POTASSIUM 3.6 mmol/L (3.5-5.1); PROTEIN TOTAL SERUM 6.6 g/dL (6.0-8.3); SODIUM 139 mmol/L (135-145)
[2016-10-05 12:42] LABS: BLOOD UREA NITROGEN 35 mg/dL (9-23); BUN/CREATININE RATIO 29.16; CALCIUM SERUM 8.4 mg/dL (8.4-10.2); CARBON DIOXIDE 29 mmol/L (22-31); CHLORIDE 97 mmol/L (100-111); CREATININE SERUM 1.2 mg/dL (0.6-1.4); GLOM FILT RATE Estimated ABOVE60 mL/min (>60); GLUCOSE FASTING 317 mg/dL (70-110); MAGNESIUM 1.6 mg/dL (1.6-3.0); POTASSIUM 3.5 mmol/L (3.5-5.1); SODIUM 135 mmol/L (135-145)
[2016-10-05 12:44] LABS: HEMATOCRIT 36.2 % (38.0-50.0); HEMOGLOBIN 11.3 gm/dL (13.0-16.0); MEAN CELL VOLUME 88.7 FL (83-96); MEAN CORPUSCULAR HEMOGLOBIN 27.7 PG (28-34); MEAN CORPUSCULAR HGB CONC 31.2 g/dL (30-36); RED BLOOD COUNT 4.09 X10e (3.90-5.60); RED CELL DISTRIBUTION WIDTH 17.2 % (11.0-15.5); WHITE BLOOD COUNT 12.9 X10e3 (4.0-10.5)
[2016-10-06 08:18] LABS: HEMATOCRIT 37.2 % (38.0-50.0); HEMOGLOBIN 11.6 gm/dL (13.0-16.0); MEAN CELL VOLUME 88.7 FL (83-96); MEAN CORPUSCULAR HEMOGLOBIN 27.6 PG (28-34); MEAN CORPUSCULAR HGB CONC 31.1 g/dL (30-36); MEAN PLATELET VOLUME 8.7 FL (6.5-11.5); RED BLOOD COUNT 4.19 X10e (3.90-5.60); RED CELL DISTRIBUTION WIDTH 17.2 % (11.0-15.5); WHITE BLOOD COUNT 14.5 X10e3 (4.0-10.5)
[2016-10-06 08:34] LABS: BLOOD UREA NITROGEN 29 mg/dL (9-23); BUN/CREATININE RATIO 26.36; CALCIUM SERUM 8.5 mg/dL (8.4-10.2); CARBON DIOXIDE 27 mmol/L (22-31); CHLORIDE 100 mmol/L (100-111); CREATININE SERUM 1.1 mg/dL (0.6-1.4); GLOM FILT RATE Estimated ABOVE60 mL/min (>60); GLUCOSE FASTING 133 mg/dL (70-110); POTASSIUM 3.7 mmol/L (3.5-5.1); SODIUM 138 mmol/L (135-145)
[2016-10-06] MEDS ORDERED: ALDACTONE25 MG PO (18:44)
[2016-10-06] MEDS ORDERED: METOPROLOL TAR25 MG PO (18:47)
[2016-10-06] MEDS ORDERED: XARELTO20 MG PO (18:48)
== END 2016-10-06 20:20 | disposition home or self-care (01) | DRG 291 ==
LOC: CED 16:37 → CEDOF 16:38 → CICCU2 22:27 → C5C 09-29 17:29
PROVIDERS: Emergency Medicine; Hospitalist; Internal Medicine; Internal Medicine Cardiovascular Disease; Internal Medicine Pulmonary Disease; Nurse Practitioner
PROC: B246YZZ Ultrasonography of Right and Left Heart using Other Contrast (ICD-10-PCS; principal; 2016-10-06)
DX: I13.0 Hypertensive heart and chronic kidney disease with heart failure and stage 1 through stage 4 chronic kidney disease, or unspecified chronic kidney disease (principal); I50.23 Acute on chronic systolic (congestive) heart failure; J11.00 Influenza due to unidentified influenza virus with unspecified type of pneumonia; N17.9 Acute kidney failure, unspecified; N18.3 Chronic kidney disease, stage 3 (moderate); I42.8 Other cardiomyopathies; I48.0 Paroxysmal atrial fibrillation; F17.210 Nicotine dependence, cigarettes, uncomplicated; I25.10 Atherosclerotic heart disease of native coronary artery without angina pectoris; E78.5 Hyperlipidemia, unspecified; E11.9 Type 2 diabetes mellitus without complications; J44.9 Chronic obstructive pulmonary disease, unspecified; Z91.14 Patient's other noncompliance with medication regimen; E87.6 Hypokalemia; E83.42 Hypomagnesemia; F10.10 Alcohol abuse, uncomplicated
CPT/HCPCS: 36415; 36600; 71010; 71020; 78582; 80048; 80053; 80076; 80162; 81003; 82308; 82550; 82553; 82803; 82947; 83605; 83735; 83880; 84443; 84484; 85025; 85027; 85379; 85610; 85730; 87040; 87449; 87804; 87899; 93005; 93306; 93970; 94640; 94660; 94760; 96374; 96375; 97116; 97162; 97530; 99285; A9540; A9567; J0696; J1160; J1250; J1650; J1815; J1956; J2270; J2920; J2930; J3370; J3475; J3490

== ENCOUNTER 2016-10-10 18:59 | Inpatient (IN) | payer OTHER ==
--- NOTE | ~2016-10-10 | CO ---
Unit #: [id number] #: [id number] Patient: JERRI GARCIA [id number] [address] [place], [place] [address] [id number] I MR#: [id number] NAME: JERRI GARCIA. ROOM: 576 Age: 60 Sex: M Admission Date: 10/10/2016 : 1955 Attending Physician: Ness Cabrera M.D. Primary Care Physician: Carmine Cabrera M.D. Consultation Date: 10/15/2016 CONSULTATION REPORT REASON FOR CONSULTATION Acute on chronic kidney disease. HISTORY OF PRESENT ILLNESS Mr. Garcia is a pleasant 60-year-old male with an underlying history of chronic kidney disease, who was admitted back on with complaints of chest pain. The patient has been treated for congestive heart failure by Cardiology and has been on a dobutamine drip earlier in the course of his admission. It looks like his hospital course has been complicated by an atrial fib and he had a cardioversion done. We have seen him in the past as his kidney function tends to fluctuate depending on his volume status with his end-stage heart failure. His documented EF is about 10%. The patient has been getting diuresis here. He developed some nausea, vomiting, and diarrhea today. Dr. Meier decided to keep him here for another day due to these issues. Dr. Nguyễn stated that he was probably stable from a cardiovascular standpoint to go home at least stable as he can be. The patient denies any chest pain or shortness of breath. Currently, he says the swelling he came in with has gone. He denies any urinary complaints. PAST MEDICAL HISTORY Significant for chronic kidney disease stage 3, hypertension, diabetes, COPD, systolic heart failure with an ejection fraction of 10% with right ventricular failure, he does have an AICD in place, hyperlipidemia, paroxysmal atrial fibrillation, and tobacco abuse. PAST SURGICAL HISTORY He has had an AICD placed and finger surgery CURRENT MEDICATIONS As follows; amiodarone 400 mg b.i.d., Zofran p.r.n., baby aspirin daily, digoxin 0.125 mg daily, Imdur 60 mg a day, Xarelto 20 mg a day, allopurinol 300 mg a day, Lipitor 40 mg at bedtime, Aldactone 25 mg a day, Bumex 2 mg IV b.i.d., metolazone 2.5 mg a day, MAGnesium-Oxide 400 mg b.i.d., Humibid b.i.d., colchicine 0.6 mg b.i.d., Levemir insulin, sliding scale insulin, and he had been on an amiodarone drip as well. ALLERGIES He has no known drug allergies. FAMILY HISTORY Significant for heart and kidney disease. SOCIAL HISTORY Unit #: [id number] #: [id number] Patient: JERRI GARCIA The patient is disabled. He apparently continues to smoke. No alcohol or drug abuse reported. REVIEW OF SYSTEMS A complete 12-point review of systems was completed with the above findings. In addition, he denies any fevers or chills. No headaches or dizziness. No nosebleed, sore throat, or earache. No hemoptysis. No hematemesis. No bright red blood per rectum or melena. No dysuria or hematuria. No rashes or itching. No flank pain. No night sweats or hot flashes. No intolerance to heat or cold. No bleeding issues. Unless otherwise indicated, the review of systems was negative. PHYSICAL EXAMINATION VITAL SIGNS: The patient is afebrile, pulse 69, respiratory rate 19, blood pressure 128/81, I's and O's are negative by 2300. GENERAL: This is a 60-year-old male, sitting up in bed, watching TV, was able to drink some water, in no acute distress. HEENT: Head is atraumatic and normocephalic. Eyes show pink conjunctivae with no scleral icterus. No nasal drainage or nosebleed. Oropharynx is slightly dry. No thrush. NECK: Shows no rigidity. HEART: Regular rate and rhythm with distant S1 and S2. No significant murmur or rub appreciated. LUNGS: Clear with no wheezing or rhonchi. Breathing is nonlabored. ABDOMEN: Soft and nontender. Bowel sounds are present. EXTREMITIES: No lower extremity cyanosis or pitting edema. SKIN: Dry. No rashes. MUSCULOSKELETAL: No CVA tenderness to palpation. NEUROLOGIC: Cranial nerves are grossly intact with no gross motor deficits. LYMPHATIC: There is no neck or cervical lymphadenopathy. PSYCHIATRIC: Mood and affect appear normal. DIAGNOSTIC STUDIES LABORATORY RESULTS: Chemistry this morning showed a sodium of 131, potassium of 3.2, chloride 87, bicarb 30, glucose 130, BUN 48, creatinine 1.8, magnesium 2.1. CBC was unremarkable. INR yesterday was 1.3. Creatinine yesterday was 1.5. There was a CK level of 66 on the 13th. Last digoxin level on the was 1.5. Creatinine overall this admission has gone from 1.4 up to 1.8. Creatinine probably is in the mid 1 range, although again we do have a significant fluctuation based on his heart failure and volume status. His urinalysis here have shown intermittent proteinuria with no blood. IMAGING STUDIES: He did have a kidney ultrasound done on 08/06/2016 that showed some echogenicity and a small right renal cyst. ASSESSMENT AND PLAN 1. Acute on chronic kidney disease, stage 3. The patient does have chronic kidney disease likely related to his underlying history of hypertension and diabetes. His acute kidney injury looks to be prerenal in nature from his diuresis and now with his nausea, vomiting, and diarrhea. We will gently hydrate him overnight and hold his Bumex dose tonight and recheck kidney function in the morning. Overall, however, we will have to keep him on the dry side with his significant end-stage heart failure. 2. Hypokalemia. We will be replacing this in his IV fluids and Dr. Nguyễn has already ordered p.o. potassium. Unit #: [id number] #: [id number] Patient: JERRI GARCIA 3. Hyponatremia. We will be replacing with normal saline based IV fluids. 4. End-stage heart failure with an ejection fraction of 10%. 5. Nausea and vomiting with diarrhea. I will send off a Clostridium difficile toxin and stop his colchicine, which may be the cause. 6. Atrial fibrillation with cardioversion. 7. History of hypertension, which appears to be well controlled. 8. Diabetes. 9. Chronic obstructive pulmonary disease with continued tobacco abuse. 10. Overall, the patient has significant end-stage heart failure and his prognosis is very poor. I do not know if he is a candidate for a ventricular assist device or other end-stage heart failure treatment. He is certainly not a dialysis candidate with end-stage heart failure if his kidney function are to worsen to the point where he need a dialysis. I would like to thank Dr. Meier for this consult and the opportunity to participate in evaluation and care of Mr. Garcia. Dictated by... Cruzito De Leon Jr., M.D. CLOVIS/donna TD: 10/15/2016 23:07 JOB #: [id number] CONSULTATION REPORT X Cruzito De Leon MD X CONSULTATION REPORT
--- NOTE | ~2016-10-10 | EKG ---
PATIENT: JERRI GARCIA UNIT #: [id number] Ventricular Rate: 75 BPM Atrial Rate: 75 BPM P-R Interval: 136 ms QRS Duration: 198 ms Q-T Interval: 500 ms QTC Calculation(Bezet): 558 ms P [place]: 80 degrees Calculated R [place]: 154 degrees Calculated T [place]: 2 degrees Diagnosis Line: Electronic ventricular pacemaker Diagnosis Line: When compared with ECG of 10-OCT-2016 17:19, Diagnosis Line: Normal sinus rhythm has replaced Atrial Diagnosis Line: fibrillation Diagnosis Line: Confirmed by RENETTA HOLLIDAY MD ([id number]) on 10/16/2016 Diagnosis Line: 7:39:11 AM INTERPRETING MD: MG VALDEZ
--- NOTE | ~2016-10-10 | DS ---
Unit #: [id number] #: [id number] Patient: JERRI GARCIA [id number] [address] [address] [id number] I MR#: [id number] NAME: JERRI GARCIA. ROOM: 576 Age: 60 Sex: M Admission Date: 10/10/2016 : 1955 Discharge Date: 10/18/2016 Attending Physician: Ness Cabrera M.D. Primary Care Physician: Carmine Cabrera M.D. DISCHARGE SUMMARY FINAL DIAGNOSES 1. Acute on chronic systolic congestive heart failure with ejection fraction of 10%. 2. Elevated troponin, which is indeterminate. 3. Nonobstructive coronary artery disease. Last cardiac cath done was in 2014. 4. Acute on chronic kidney disease. 5. Known supraventricular tachycardia and new onset of atrial flutter, status post cardioversion. 6. Nonischemic cardiomyopathy, status post automatic implantable cardioverter-defibrillator. 7. Paroxysmal atrial fibrillation, stat atrial flutter, on Xarelto. 8. Hypertension. 9. Hyperlipidemia. 10. Diabetes mellitus. DISCHARGE MEDICATIONS Albuterol nebulizer treatment q.i.d., Entresto one tab b.i.d. if okay with Cardiology, mag oxide 400 mg b.i.d., amiodarone as per Cardiology which is going to be a tapering dose, Xarelto 20 mg daily, Lanoxin 125 mcg p.o. daily, aspirin 81 mg daily, Aldactone 25 mg daily, Bumex 2 mg b.i.d., Lipitor 40 mg daily, Humalog insulin 6 units subcu t.i.d. before meals, Lantus 10 units subcu daily, Zyloprim 300 mg daily. CONSULTATION DURING HOSPITALIZATION 1. Dr. Nguyễn from Cardiology Services. 2. Dr. Cruzito De Leon from [facility]. PROCEDURE PERFORMED DURING HOSPITALIZATION Direct current shock Cardioversion on 10/14/2016. DIAGNOSTIC STUDIES LABORATORY RESULTS: Lab workup on discharge; sodium 133, potassium 3.5, chloride 90, BUN 46, creatinine 2.1. CBC shows WBC 5.6, hemoglobin 12.1, hematocrit 38.2, and platelet count of 192. Troponin 0.11, slightly elevated. HOSPITAL COURSE Mr. Jerri Garcia is a 60-year-old male, who has significant nonischemic cardiomyopathy with ejection fraction of 10%. He was recently discharged from the hospital and was readmitted for the same kind of symptoms, which were worsening of shortness of breath, worsening of leg swelling, and also elevated troponin. Dr. Nguyễn was consulted. The patient was started on Unit #: [id number] #: [id number] Patient: JERRI GARCIA dobutamine drip and medications were adjusted with IV diuretics. The patient did have hypokalemia during hospitalization and that was replaced. As per Dr. Nguyễn, his worsening of congestive heart failure could be secondary to his atrial fibrillation and atrial flutter. DC cardioversion was performed using 250 joules. The patient seems to be stable at this time from cardiac point of view. The patient also developed acute on chronic kidney disease. The patient does have chronic kidney failure. Colchicine was discontinued. Most likely, the patient has underlying chronic kidney disease secondary to hypertension and diabetes. He was gently hydrated and his Bumex dose was changed to p.o. The patient did have nausea and vomiting, but that has resolved. PHYSICAL EXAMINATION VITAL SIGNS: On discharge, blood pressure is 108/47, respiratory rate 16, pulse is 61, temperature 98.1. CHEST: Fair air entry. No additional sounds. CVS: S1, S2 positive. AICD in place. EXTREMITIES: Edema is present 1+. DISCHARGE INSTRUCTIONS The patient will be discharged home after seen by Renal and Cardiology. MEDICATIONS As per med rec. DISCHARGE INSTRUCTIONS 1. Follow up primary care provider in 1 week. 2. Follow up Cardiology in 11/11/2016 at 2:45 p.m. 3. BMP to be done in 1 week. Dictated by... Debbie Kinglsey/donna TD: 10/19/2016 06:16 JOB #: [id number] DISCHARGE SUMMARY Page 1 of 1 X Ness Cabrera MD X DISCHARGE SUMMARY
--- NOTE | ~2016-10-10 | OR ---
Unit #: [id number] #: [id number] Patient: JERRI GARCIA [id number] [address] [address] [id number] I MR#: [id number] NAME: JERRI GARCIA ROOM: 576 Date of Procedure: 10/14/2016 Admission Date: 10/10/2016 Surgeon: Paul Nguyễn M.D. : 1955 Attending Physician: Ness Cabrera M.D. Referring Physician: Self Referral-Refer Use Only Primary Care Physician: Carmine Cabrera M.D. OPERATIVE REPORT PROCEDURE PERFORMED Direct current shock cardioversion. INDICATION FOR PROCEDURE Atrial flutter/fibrillation. DESCRIPTION OF PROCEDURE The patient was taken to the cardiac catheterization lab, telemetry was established, pulse oximetry was checked at 98%. Intravenous lines were established. In a graded manner, the patient was given a total of 3 mg of Versed and 100 mcg of fentanyl intravenously. After amnesia was induced, using 250 joules per second of biphasic current, DC shock cardioversion was performed. Rhythm converted from atrial flutter/fibrillation to normal sinus with pacemaker function in atrial tracking ventricular pacing mode. Blood pressure remained normal. IMPRESSION Successful direct current shock cardioversion, atrial fibrillation converted to normal sinus rhythm. Dictated by... Debbie Alexander/donna TD: 10/16/2016 02:19 JOB #: [id number] OPERATIVE REPORT X Paul Nguyễn MD X PROCEDURE OPERATIVE NOTE
--- NOTE | ~2016-10-10 | EKG ---
PATIENT: JERRI GARCIA UNIT #: [id number] Ventricular Rate: 130 BPM Atrial Rate: 127 BPM QRS Duration: 120 ms Q-T Interval: 374 ms QTC Calculation(Bezet): 550 ms Calculated R [place]: 82 degrees Calculated T [place]: 47 degrees Diagnosis Line: Atrial flutter with 2 to 1 block Diagnosis Line: Non-specific intra-ventricular conduction delay Diagnosis Line: T wave abnormality, consider inferior ischemia Diagnosis Line: Abnormal ECG Diagnosis Line: When compared with ECG of 29-SEP-2016 06:31, Diagnosis Line: No significant change was found Diagnosis Line: Confirmed by RENETTA HOLLIDAY MD ([id number]) on 10/12/2016 Diagnosis Line: 7:24:18 PM INTERPRETING MD: MG VALDEZ
--- NOTE | ~2016-10-10 | HP ---
Unit #: [id number] #: [id number] Patient: JERRI GARCIA [id number] [address] [place], [place] [address] [id number] I MR#: [id number] NAME: JERRI GARCIA. ROOM: 576 Age: 60 Sex: M Admission Date: 10/10/2016 : 1955 Attending Physician: Ness Cabrera M.D. Referring Physician: Self Referral-Refer Use Only Primary Care Physician: Carmine Cabrera M.D. HISTORY AND PHYSICAL CHIEF COMPLAINT Chest pain. HISTORY OF PRESENTING ILLNESS Mr. Jerri Garcia is a 60-year-old -[place] male with multiple medical problems, was recently admitted in the hospital from 09/27/16 till October 06, 2016 and was treated for acute congestive heart failure. 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 He also has right ventricular failure. Patient has AICD in place. Patient was discharged home on October 06, 2016. Patient went home October 06, 2016 and was doing okay for a day or so and then for the last two days he started having chest pain. He has taken multiple nitroglycerin. He took almost three to four times in a day and was not getting better, started to have shortness of breath again and started to have bilateral leg edema. Could not ambulate and edema was going all the way up to the thighs. Patient came back to ER and is being readmitted for acute systolic congestive heart failure. Patient does have end-stage disease and is a very high risk for readmission. According to patient since last night his swelling has improved and his chest pain has improved but he is still feeling very weak and tired. PAST MEDICAL HISTORY Past medical history is: 1. COPD. 2. Systolic congestive heart failure. 3. Ejection fraction of 10%. 4. Right ventricular failure. 5. AICD in place. 6. Nonobstructive coronary artery disease cath September 2014. 7. Chronic kidney disease. 8. Hypertension. 9. Diabetes mellitus. 10. Hyperlipidemia. 11. Paroxysmal atrial fibrillation/flutter on anticoagulation therapy with Xarelto. 12. Tobacco abuse. PAST SURGICAL HISTORY 1. History of AICD implantation. 2. History of finger surgery. SOCIAL HISTORY The patient is disabled. He lives at home, continues to smoke, according Unit #: [id number] #: [id number] Patient: JERRI GARCIA to him 5 to 10 cigarettes a day. No alcohol abuse. No drug abuse. FAMILY HISTORY Family history is positive for coronary artery disease. ALLERGIES No known drug allergies. HOME MEDICATIONS 1. Humalog 6 units t.i.d. 2. Aldactone 25 mg daily, 3. Metoprolol 50 mg b.i.d. 4. Xarelto 20 mg daily, 5. Lantus 16 units subcu q.h.s. 6. Aspirin 81 mg daily. 7. Albuterol sulfate t.i.d. 8. Digitek 125 mcg daily. 9. Isosorbide 60 mg daily. 10. Colchicine 0.6 mg t.i.d. 11. Bumex 2 mg b.i.d. 12. Lipitor 40 mg q.h.s. 13. Allopurinol 300 mg daily. REVIEW OF SYMPTOMS As per history of presenting illness. He does not complain of any fever, chills or rigors. No complaint of cough or sputum production. No complaint of nausea or vomiting. No complaint of abdominal pain. No constipation or diarrhea. Patient does complain of pain and aches all over. He is complaining of headache, chest pain and all the extremities. No complaint of dizziness or syncopal episode but yesterday he did have some dizzy spell. PHYSICAL EXAMINATION GENERAL APPEARANCE: Patient is lying in bed, does look lethargic. VITAL SIGNS: Blood pressure is 146/78. Respiratory rate 18. Pulse is 79. Temperature 97.6. HEENT: Head is normocephalic. Eye movements are normal. NECK: Neck is supple. CHEST: Chest has decreased air entry. Rales are positive, basal rales. CVS: S1, S2 positive. AICD in place. ABDOMEN: Abdomen is obese, distended. EXTREMITIES: Bilateral lower extremity edema is present 1+. According to patient it has improved a lot. SKEINER: Awake, alert, oriented x3. No focal neurological deficits. DIAGNOSTIC STUDIES LABORATORY WORKUP: Troponin 0.11, digoxin level 1.5, sodium 141, potassium 3.6, chloride 102, BUN 22, creatinine 1.4, BNP 167. IMAGING: Chest x-ray in ER was done yesterday that shows large cardiomegaly. No change from last x-ray. ASSESSMENT Patient is being admitted to a telemetry unit with: 1. Chest pain. 2. Kcfzd-nc-sblofbw systolic congestive heart failure with ejection fraction of 10%. 3. Elevated troponin, possible worsening of cardiac disease. Unit #: [id number] #: [id number] Patient: JERRI GARCIA 4. Right ventricular failure. 5. Chronic kidney disease. 6. Hypertension. 7. Diabetes mellitus. 8. Paroxysmal atrial fibrillation and flutter. 9. Tobacco abuse. PLAN 1. Plan is admit to telemetry unit. 2. Dr. Nguễyn has been consulted. 3. Patient is being started on IV dobutamine 2.5 mcg/kg body weight. 4. IV Bumex 2 mg b.i.d. is being started. 5. Zaroxolyn 2.5 mg daily. 6. Metoprolol is being held at this time. 7. Home medications have been reviewed. 8. An 1800 mL fluid restriction is being done. 9. Plan of care has been discussed with patient. Dictated by Debbie Kingsley/sushant TD: 10/11/2016 16:29 JOB #: [id number] HISTORY AND PHYSICAL X Ness Cabrera MD X HISTORY AND PHYSICAL
--- NOTE | ~2016-10-10 | CR72 ---
[facility] A Service of [facility] & [facility] RADIOLOGY TEXT RESULTS PATIENT: JERRI GARCIA LOCATION: [place] [address] : [birth year] UNIT #: [id number] AGE: [address]: Ness Cabrera MD SEX: M ORDER DR: [id number] [facility] [address] [facility]. [place], [place] [address] [id number] MR#: [id number] Acc #: [id number] NAME: JERRI GARCIA. : 1955 SEX: M STUDY DATE/TIME: 10/10/2016 17:53 UNIT: CEDOF ROOM: 95586 STUDY DESCRIPTION: CR Chest Single View Portable Attending Physician: Ness Cabrera M.D. Referring Physician: Self Referral-Refer Use Only Ordering Physician: Carl Thompson M.D. Primary Care Physician: Carmine Cabrera M.D. MEDICAL IMAGING REPORT This report is preliminary unless electronic signature is present EXAM Portable chest, 10/10/2016 INDICATION Chest pain today. PROCEDURE Frontal view chest. COMPARISON 10/03/2016 FINDINGS Large cardiomegaly. Pacer leads are unchanged. Lungs are clear. No pleural fluid. No pneumothorax. IMPRESSION Large cardiomegaly. No change from 10/03/2016. Dictated by... Robi Lutz M.D. THIS IS AN ELECTRONICALLY VERIFIED REPORT Robi Lutz M.D. at 10/12/2016 6:59 AM NATALIOD/regi TD: 10/11/2016 00:13 JOB #: [id number] MEDICAL IMAGING REPORT COPY
--- NOTE | ~2016-10-10 | EKG ---
PATIENT: JERRI GARCIA UNIT #: [id number] Ventricular Rate: 70 BPM Atrial Rate: 70 BPM P-R Interval: 156 ms QRS Duration: 204 ms Q-T Interval: 536 ms QTC Calculation(Bezet): 578 ms P [place]: 82 degrees Calculated R [place]: 144 degrees Calculated T [place]: 13 degrees Diagnosis Line: Electronic ventricular pacemaker Diagnosis Line: When compared with ECG of 14-OCT-2016 12:24, Diagnosis Line: (unconfirmed) Diagnosis Line: Vent. rate has decreased BY 5 BPM Diagnosis Line: Confirmed by RENETTA HOLLIDAY MD ([id number]) on 10/16/2016 Diagnosis Line: 7:44:50 AM INTERPRETING MD: MG VALDEZ
[2016-10-10 17:36] LABS: BASOPHIL# 0.1 X10e3 (0-0.3); BASOPHIL% 0.7 % (0-2.5); EOSINOPHIL# 0.2 X10e3 (0-0.7); EOSINOPHIL% 1.9 % (0.0-7.0); HEMATOCRIT 34.3 % (38.0-50.0); HEMOGLOBIN 10.8 gm/dL (13.0-16.0); MEAN CELL VOLUME 87.8 FL (83-96); MEAN CORPUSCULAR HEMOGLOBIN 27.5 PG (28-34); MEAN CORPUSCULAR HGB CONC 31.4 g/dL (30-36); MEAN PLATELET VOLUME 8.4 FL (6.5-11.5); MONOCYTE# 0.9 X10e3 (0-1.0); MONOCYTE% 8.4 % (3.0-12.0); NEUTROPHIL# 7.1 X10e3 (1.5-7.1); PLATELET COUNT 255 X10e3 (140-420); RED BLOOD COUNT 3.91 X10e (3.90-5.60); RED CELL DISTRIBUTION WIDTH 18.1 % (11.0-15.5); WHITE BLOOD COUNT 10.2 X10e3 (4.0-10.5)
[2016-10-10 17:43] LABS: DIFF IND NO
[2016-10-10 17:54] LABS: ALBUMIN SERUM 3.2 g/dL (3.5-5.0); ALKALINE PHOSPHATASE 91 U/L (32-92); ALT (SGPT) 29 U/L (10-40); AST (SGOT) 29 U/L (10-42); BILIRUBIN, DIRECT 0.4 mg/dL (0.0-0.2); BILIRUBIN,INDIRECT 1.7 mg/dL (0.0-0.9); BILIRUBIN,TOTAL 2.1 mg/dL (0.2-2.0); BLOOD UREA NITROGEN 23 mg/dL (9-23); BUN/CREATININE RATIO 16.42; CALCIUM SERUM 8.7 mg/dL (8.4-10.2); CARBON DIOXIDE 29 mmol/L (22-31); CHLORIDE 102 mmol/L (100-111); CREATININE SERUM 1.4 mg/dL (0.6-1.4); GLOM FILT RATE Estimated ABOVE60 mL/min (>60); GLUCOSE FASTING 188 mg/dL (70-110); POTASSIUM 3.7 mmol/L (3.5-5.1); PROTEIN TOTAL SERUM 6.3 g/dL (6.0-8.3); SODIUM 141 mmol/L (135-145)
[2016-10-10 18:07] LABS: POC - CKMB 3.2 ng/mL (0.0-7.9); POC - TROPONIN <0.05 ng/mL (<=0.05)
[2016-10-10 18:13] LABS: INR 1.3; PARTIAL THROMBOPLASTIN TIME 27.8 SECONDS (23.5-31.3)
[~2016-10-10 18:59] MED LIST changes: +METOPROLOL TAR25 MG PO
[2016-10-10 19:37] LABS: POC - CKMB 2.8 ng/mL (0.0-7.9); POC - TROPONIN <0.05 ng/mL (<=0.05)
[2016-10-11 03:59] LABS: %MB 5.5 % (0.0-4.0)
[2016-10-11 07:24] LABS: BLOOD UREA NITROGEN 22 mg/dL (9-23); BUN/CREATININE RATIO 15.71; CALCIUM SERUM 8.8 mg/dL (8.4-10.2); CARBON DIOXIDE 30 mmol/L (22-31); CHLORIDE 102 mmol/L (100-111); CREATININE SERUM 1.4 mg/dL (0.6-1.4); GLOM FILT RATE Estimated ABOVE60 mL/min (>60); GLUCOSE FASTING 87 mg/dL (70-110); MAGNESIUM 1.6 mg/dL (1.6-3.0); POTASSIUM 3.6 mmol/L (3.5-5.1); SODIUM 141 mmol/L (135-145)
[2016-10-11 09:32] LABS: %MB 5.9 % (0.0-4.0); MB 3.9 ng/ml
[2016-10-12 05:54] LABS: HEMATOCRIT 38.8 % (38.0-50.0); HEMOGLOBIN 12.3 gm/dL (13.0-16.0); MEAN CELL VOLUME 87.1 FL (83-96); MEAN CORPUSCULAR HEMOGLOBIN 27.6 PG (28-34); MEAN CORPUSCULAR HGB CONC 31.7 g/dL (30-36); MEAN PLATELET VOLUME 8.2 FL (6.5-11.5); RED BLOOD COUNT 4.45 X10e (3.90-5.60); RED CELL DISTRIBUTION WIDTH 17.5 % (11.0-15.5); WHITE BLOOD COUNT 9.8 X10e3 (4.0-10.5)
[2016-10-12 07:26] LABS: BUN/CREATININE RATIO 17.5; CALCIUM SERUM 9.2 mg/dL (8.4-10.2); CREATININE SERUM 1.6 mg/dL (0.6-1.4); GLOM FILT RATE Estimated 57.4 mL/min (>60); MAGNESIUM 1.9 mg/dL (1.6-3.0); POTASSIUM 3.3 mmol/L (3.5-5.1)
[2016-10-13 08:37] LABS: BUN/CREATININE RATIO 21.76; CALCIUM SERUM 9.2 mg/dL (8.4-10.2); CREATININE SERUM 1.7 mg/dL (0.6-1.4); GLOM FILT RATE Estimated 53.5 mL/min (>60); MAGNESIUM 2.2 mg/dL (1.6-3.0); POTASSIUM 3.6 mmol/L (3.5-5.1)
[2016-10-14 06:31] LABS: HEMATOCRIT 39.4 % (38.0-50.0); HEMOGLOBIN 12.6 gm/dL (13.0-16.0); MEAN CELL VOLUME 86.9 FL (83-96); MEAN CORPUSCULAR HEMOGLOBIN 27.8 PG (28-34); MEAN PLATELET VOLUME 8.7 FL (6.5-11.5); RED BLOOD COUNT 4.53 X10e (3.90-5.60); RED CELL DISTRIBUTION WIDTH 18.4 % (11.0-15.5); WHITE BLOOD COUNT 8.3 X10e3 (4.0-10.5)
[2016-10-14 07:10] LABS: BLOOD UREA NITROGEN 42 mg/dL (9-23); CALCIUM SERUM 9.6 mg/dL (8.4-10.2); CARBON DIOXIDE 31 mmol/L (22-31); CHLORIDE 89 mmol/L (100-111); CREATININE SERUM 1.5 mg/dL (0.6-1.4); GLOM FILT RATE Estimated ABOVE60 mL/min (>60); GLUCOSE FASTING 111 mg/dL (70-110); MAGNESIUM 1.9 mg/dL (1.6-3.0); POTASSIUM 3.2 mmol/L (3.5-5.1); SODIUM 137 mmol/L (135-145)
[2016-10-14 09:36] LABS: INR 1.3; PARTIAL THROMBOPLASTIN TIME 30.6 SECONDS (23.5-31.3); PROTHROMBIN TIME (PATIENT) 13.5 SECONDS (9.6-11.5)
[2016-10-15 05:21] LABS: BASOPHIL# 0.1 X10e3 (0-0.3); BASOPHIL% 0.7 % (0-2.5); EOSINOPHIL# 0.3 X10e3 (0-0.7); EOSINOPHIL% 3.8 % (0.0-7.0); HEMATOCRIT 40.6 % (38.0-50.0); LYMPHOCYTE# 2.1 X10e3 (1.0-3.5); MEAN CELL VOLUME 86.8 FL (83-96); MEAN CORPUSCULAR HEMOGLOBIN 27.7 PG (28-34); MEAN CORPUSCULAR HGB CONC 31.9 g/dL (30-36); MEAN PLATELET VOLUME 8.8 FL (6.5-11.5); MONOCYTE# 0.8 X10e3 (0-1.0); MONOCYTE% 9.9 % (3.0-12.0); NEUTROPHIL# 5.1 X10e3 (1.5-7.1); NEUTROPHIL% 60.6 % (40-75); PLATELET COUNT 243 X10e3 (140-420); RED BLOOD COUNT 4.68 X10e (3.90-5.60); RED CELL DISTRIBUTION WIDTH 18.8 % (11.0-15.5); WHITE BLOOD COUNT 8.4 X10e3 (4.0-10.5)
[2016-10-15 05:31] LABS: DIFF IND NO
[2016-10-15 06:06] LABS: BUN/CREATININE RATIO 26.66; CALCIUM SERUM 9.1 mg/dL (8.4-10.2); CREATININE SERUM 1.8 mg/dL (0.6-1.4); GLOM FILT RATE Estimated 50.1 mL/min (>60); MAGNESIUM 2.1 mg/dL (1.6-3.0); POTASSIUM 3.2 mmol/L (3.5-5.1)
[2016-10-16 09:16] LABS: BUN/CREATININE RATIO 26.84; CALCIUM SERUM 9.1 mg/dL (8.4-10.2); CREATININE SERUM 1.9 mg/dL (0.6-1.4); GLOM FILT RATE Estimated 47.1 mL/min (>60); MAGNESIUM 2.1 mg/dL (1.6-3.0); POTASSIUM 3.3 mmol/L (3.5-5.1)
[2016-10-17 06:41] LABS: CALCIUM SERUM 8.9 mg/dL (8.4-10.2); GLOM FILT RATE Estimated 44.4 mL/min (>60); MAGNESIUM 1.9 mg/dL (1.6-3.0); POTASSIUM 3.4 mmol/L (3.5-5.1)
[2016-10-18 05:32] LABS: HEMATOCRIT 38.2 % (38.0-50.0); HEMOGLOBIN 12.1 gm/dL (13.0-16.0); MEAN CELL VOLUME 87.8 FL (83-96); MEAN CORPUSCULAR HEMOGLOBIN 27.9 PG (28-34); MEAN CORPUSCULAR HGB CONC 31.7 g/dL (30-36); MEAN PLATELET VOLUME 8.9 FL (6.5-11.5); RED BLOOD COUNT 4.35 X10e (3.90-5.60); RED CELL DISTRIBUTION WIDTH 18.3 % (11.0-15.5); WHITE BLOOD COUNT 5.6 X10e3 (4.0-10.5)
[2016-10-18 06:00] LABS: BUN/CREATININE RATIO 21.9; CALCIUM SERUM 8.8 mg/dL (8.4-10.2); CREATININE SERUM 2.1 mg/dL (0.6-1.4); GLOM FILT RATE Estimated 41.9 mL/min (>60); MAGNESIUM 2.2 mg/dL (1.6-3.0); POTASSIUM 3.5 mmol/L (3.5-5.1)
[2016-10-18] MEDS ORDERED: K-DUR20 ME2 PO (17:31)
[2016-10-18] MEDS ORDERED: AMIODARONE HCL400 MG PO (17:32)
[2016-10-18] MEDS ORDERED: ENTRESTO 24 MG1 EACH PO (17:34)
[2016-10-18] MEDS ORDERED: MAGOX 400400 MG PO (17:35)
[2016-10-18] MEDS ORDERED: PERCOCET5/325 PO (17:37)
== END 2016-10-18 19:14 | disposition home or self-care (01) | DRG 308 ==
LOC: CED 18:59 → CEDOF 22:56 → C5C 10-11 01:42
PROVIDERS: Emergency Medicine; Hospitalist; Internal Medicine; Internal Medicine Cardiovascular Disease; Nurse Practitioner; Physician Assistant Medical
PROC: 5A2204Z Restoration of Cardiac Rhythm, Single (ICD-10-PCS; principal; 2016-10-10)
PROC: B246YZZ Ultrasonography of Right and Left Heart using Other Contrast (ICD-10-PCS; 2016-10-16)
DX: I48.91 Unspecified atrial fibrillation (principal); I50.23 Acute on chronic systolic (congestive) heart failure; N17.9 Acute kidney failure, unspecified; E11.22 Type 2 diabetes mellitus with diabetic chronic kidney disease; N18.3 Chronic kidney disease, stage 3 (moderate); I42.8 Other cardiomyopathies; I13.0 Hypertensive heart and chronic kidney disease with heart failure and stage 1 through stage 4 chronic kidney disease, or unspecified chronic kidney disease; E87.1 Hypo-osmolality and hyponatremia; I48.92 Unspecified atrial flutter; I47.1 Supraventricular tachycardia; I25.10 Atherosclerotic heart disease of native coronary artery without angina pectoris; Z95.810 Presence of automatic (implantable) cardiac defibrillator; E78.5 Hyperlipidemia, unspecified; F17.210 Nicotine dependence, cigarettes, uncomplicated; J44.9 Chronic obstructive pulmonary disease, unspecified; Z79.4 Long term (current) use of insulin; E87.6 Hypokalemia
CPT/HCPCS: 36415; 71010; 80048; 80076; 80162; 82550; 82553; 82947; 83735; 83880; 84132; 84484; 84550; 85025; 85027; 85610; 85730; 92960; 93005; 94640; 94760; 97116; 97161; 99285; 99291; J0282; J0461; J1160; J1250; J1815; J2250; J2310; J2405; J3010; J3473; J3475; J3490